=== PATIENT | male | born 1995 | race Caucasian/White ===

== ENCOUNTER 2019-09-12 19:29 | Emergency (ER) | payer OTHER, SELFPAY ==
[2019-09-12 19:30] VITALS: BP 129/86; PULSE 96; RESP 16; TEMP 36.7; O2SAT 98; BMI 29.6
[2019-09-12 19:33] VITALS: BP 129/86; PULSE 91; RESP 16; TEMP 36.7; O2SAT 98
--- NOTE | 2019-09-12 20:07 | ED.VIS.URI ---
History of Present Illness Chief Complaint: Cough Informant: Patient Onset: Yesterday Context: Gradual Onset Timing: Continuous Quality: nonproductive Current Severity: Mild Maximum Severity: Mild Worsened by: - - n/a Relieved by: - - n/a Associated Symptoms: Nasal Congestion, Headache, Myalgias, Nonproductive cough. Negative for: Nausea, Vomiting, Diarrhea, Shortness of Breath, Chest Pain, Hemoptysis, Productive Cough Narrative: Patient presenting with upper respiratory tract infection symptoms, no dyspnea, subjective fevers that he measured once at 99 point something, and presents with concern for coronavirus infection. He presents during the national coronavirus emergency declaration. He is healthy. He has a young son at home, and does not want him to get sick. He has had contact with no one with coronavirus infection that he knows of. He has not traveled out of the area. 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 He denies any dyspnea. Past Medical History - Allergies and Home Meds Allergies/Adverse Reactions: Allergies No Known Allergies Allergy (Verified 09/12/19 19:33) Primary Care Physician: Care Physician,No Primary [Primary Care Provider] - Past Medical History: None Lives: With Family Smoking Status: Never smoker Review of Systems General: Reports: Fever, Malaise, Subjective. Denies: Chills, Sweats Eyes: Denies: Visual changes - bilaterally, Diplopia ENT: Reports: Rhinorrhea, Sore throat. Denies: Bilateral ear pain Cardiovascular: Denies: Chest pain, Palpitations Respiratory: Reports: Cough. Denies: Dyspnea, Sputum, Dyspnea on exertion Gastrointestinal: Denies: Abdominal pain, Nausea, Vomiting, Diarrhea, Melena, Hematochezia Genitourinary: Denies: Dysuria, Hematuria, Frequency Musculoskeletal: Reports: Myalgias. Denies: Arthralgias, Neck pain, Back pain, Swelling, Extremity Pain Skin: Denies: Rash, Wounds Neurological: Denies: Headache, Weakness, Numbness Physical Exam Vital Signs/Narrative: Vital Signs Temp Pulse Resp BP Pulse Ox 09/12/19 19:33 98.1 F 91 16 129/86 H 98 09/12/19 19:30 98.1 F 96 16 129/86 H 98 Inital Vital Signs reviewed: Yes General: Well nourished, Well developed, - - Well-appearing, no distress Head: Normocephalic, Atraumatic Eyes: Perrl, EOMI, - - Conjunctivae normal Ears: Normal external canal, TM's clear Nose: Normal Inspection, No Rhinorrhea. Negative for: Congestion, Purulent Drainage Mouth/Throat: Normal Inspection, No Posterior Erythema, Airway Patent Tonsils: Negative for: Right Tonsilar Exudates, Left Tonsilar Exudates, Right Tonsilar Swelling, Left Tonsilar Swelling Neck: Supple, Nontender, No Lymphadenopathy, No Meningismus Cardiovascular: Regular rate, Regular rhythm, No murmurs. Negative for: Tachycardia Respiratory: No distress, CTA bilaterally, Chest nontender Abdomen: Soft, Nontender, Nondistended, Normal bowel sounds Back: Nontender, Normal Inspection Extremities: Nontender, No edema. Negative for: Calf Tenderness Skin: Normal color, No rash, No Trauma Neurological: Alert, Oriented x3, Cranial nerves II-XII grossly intact, Normal Strength, Normal Sensation, Normal Gait Psychological: Normal affect, Normal Mood Diagnostic/Tx/Re-eval - Medical Decision Making Signs are normal including pulse oximetry. Patient was reassured, there has been a significant uptick in COVID-19 cases in [place] recently, although this [facility] is a level 1 out of 4 at this time. It would be reasonable for him to obtain an outpatient test, we will swab him here and send it out, with results returning in 3-5 days. Patient was advised to quarantine for at least 10 days in the meantime until he gets test results back. He was offered analgesics/anti-inflammatories, he states as long as it is safe to take ibuprofen he will do so when he gets home, I reassured him that it is. ED Disposition - Plan for ED Patient: Disposition: Home or Assisted Living Diagnosis: Upper respiratory tract infection Instructions: ED URI Viral Referrals: Jael Hdz MD [STAFF PHYSICIAN] - (To follow-up with, if you have no primary care physician)
== END 2019-09-12 20:48 | disposition home or self-care (01) ==
PROVIDERS: Emergency Provider Emergency Medicine
DX: J06.9 Acute upper respiratory infection, unspecified (principal)
CPT/HCPCS: 87635; 94799; 99282; C9803; U0003